=== PATIENT | male | born 1960 | race Caucasian/White ===

== ENCOUNTER 2017-04-10 09:36 | Emergency (ER) | payer OTHER ==
[~2017-04-10] VITALS: Ht 172.7 cm; Wt 80.0 kg
[2017-04-10 09:38] VITALS: BP 158/97; PULSE 89; RESP 15; TEMP 98.2; O2SAT 98
[2017-04-10] MEDS ORDERED: SODIUM CHLOR 0.9% 1000 ML INJ 1,000 ML IV ONE (10:12)
[2017-04-10] MEDS ORDERED: SODIUM CHLORIDE 0.9% FLUSH 10 ML FLUSH IVF PRN (10:15)
--- NOTE | 2017-04-10 10:18 | PD ---
HPI Chief Complaint: Medical Clearance Time Seen by Provider: 09:54 Travel History International Travel<30 days: No Contact w/Intl Traveler<30days: No Traveled to known affect area: No History of Present Illness HPI The patient is a 56-year-old male who presents to the emergency department for the "shakes ", and "[place] ". 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 The patient denied any chest pain, shortness of breath, nausea, vomiting, abdominal pain, or diaphoresis. The patient states he had a similar episode approximately 3 years ago where he had a [address] [facility] and was diagnosed with possibly a "mini stroke "and was placed on aspirin. The patient states he wore a Holter monitor at that time which was unremarkable. He denies any palpitations, lightheadedness, or dizziness. The patient symptoms have currently resolved, however, he now feels "weak". He denies any other physical complaints. 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 The patient denies any fever, chills, or sweats. Symptoms are mild, self resolving, and there are no known exacerbating factors. The patient's blood glucose upon arrival in triage was 109. PFSH Past Medical History Narrative Medical Diverticulitis, TIA Past Surgical History Narrative Surgical Partial splenectomy Social History Alcohol Use: Yes Tobacco Use: Yes (smokless) Substance Use: No Allergies-Medications (Allergen,Severity, Reaction): Coded Allergies: No Known Allergies (Unverified , 04/10/17) Review of Systems Except as stated in HPI: all other systems reviewed are Neg General / Constitutional: Positive: Other (shakes), No: Fever, Chills HENT: Positive: Other ([place]), No: Lightheadedness Cardiovascular: No: Chest Pain or Discomfort, Palpitations, Tachycardia, Diaphoresis Respiratory: No: Shortness of Breath Gastrointestinal: No: Nausea, Vomiting, Abdominal Pain Musculoskeletal: Positive: Weakness Neurologic: No: Dizziness, Focal Abnormalities, Headache, Change in Mentation, Slurred Speech, Paresthesia, Sensory Disturbance Physical Exam Narrative GENERAL: Awake, alert, pleasant 56-year-old male who appears his stated age and is in no acute respiratory distress. SKIN: Focused skin assessment warm/dry. HEAD: Atraumatic. Normocephalic. EYES: Pupils equal and round. Pupils are 2 mm bilateral. Bilateral pterygiums. ENT: No nasal bleeding or discharge. Mucous membranes pink and moist. NECK: Trachea midline. No JVD. CARDIOVASCULAR: Regular rate and rhythm. No murmur appreciated. RESPIRATORY: No accessory muscle use. Clear to auscultation. Breath sounds equal bilaterally. GASTROINTESTINAL: Abdomen soft, well-healed midline scar. No rebound tenderness. MUSCULOSKELETAL: No obvious deformities. No clubbing. No cyanosis. No edema. NEUROLOGICAL: Awake and alert. No obvious cranial nerve deficits. Motor grossly within normal limits. Normal speech. Nonfocal. Oriented 4. Follows commands without difficulty. PSYCHIATRIC: Appropriate mood and affect; insight and judgment normal. Data Data Last Documented VS Vital Signs Date Time Temp Pulse Resp B/P Pulse Ox O2 Delivery O2 Flow Rate FiO2 04/10/17 10:20 71 16 135/82 97 Room Air 04/10/17 09:38 98.2 Orders Electrocardiogram (04/10/17 10:12) Complete Blood Count With Diff (04/10/17 10:12) Comprehensive Metabolic Panel (04/10/17 10:12) Magnesium (Mg) (04/10/17 10:12) Ckmb (Isoenzyme) Profile (04/10/17 10:12) Troponin I (04/10/17 10:12) Ecg Monitoring (04/10/17 10:12) Iv Access Insert/Monitor (04/10/17 10:12) Oximetry (04/10/17 10:12) Sodium Chloride 0.9% Flush (Ns Flush) (04/10/17 10:15) Sodium Chlor 0.9% 1000 Ml Inj (Ns 1000 M (04/10/17 10:12) Labs Laboratory Tests Test 04/10/17 10:15 White Blood Count 8.6 TH/MM3 Red Blood Count 5.14 MIL/MM3 Hemoglobin 14.4 GM/DL Hematocrit 42.3 % Mean Corpuscular Volume 82.4 FL Mean Corpuscular Hemoglobin 28.0 PG Mean Corpuscular Hemoglobin 34.0 % Concent Red Cell Distribution Width 13.6 % Platelet Count 208 TH/MM3 Mean Platelet Volume 8.7 FL Neutrophils (%) (Auto) 81.3 % Lymphocytes (%) (Auto) 8.7 % Monocytes (%) (Auto) 6.8 % Eosinophils (%) (Auto) 2.7 % Basophils (%) (Auto) 0.5 % Neutrophils # (Auto) 7.0 TH/MM3 Lymphocytes # (Auto) 0.8 TH/MM3 Monocytes # (Auto) 0.6 TH/MM3 Eosinophils # (Auto) 0.2 TH/MM3 Basophils # (Auto) 0.0 TH/MM3 CBC Comment DIFF FINAL Differential Comment Sodium Level 141 MEQ/L Potassium Level 4.2 MEQ/L Chloride Level 105 MEQ/L Carbon Dioxide Level 26.6 MEQ/L Anion Gap 9 MEQ/L Blood Urea Nitrogen 16 MG/DL Creatinine 0.95 MG/DL Estimat Glomerular Filtration 82 ML/MIN Rate Random Glucose 91 MG/DL Calcium Level 8.8 MG/DL Magnesium Level 2.1 MG/DL Total Bilirubin 1.0 MG/DL Aspartate Amino Transf 11 U/L (AST/SGOT) Alanine Aminotransferase 14 U/L (ALT/SGPT) Alkaline Phosphatase 65 U/L Total Creatine Kinase 51 U/L Troponin I LESS THAN 0.02 NG/ML Total Protein 7.4 GM/DL Albumin 3.7 GM/DL MDM Medical Decision Making Medical Screen Exam Complete: Yes Emergency Medical Condition: Yes Medical Record Reviewed: Yes Interpretation(s) EKG reveals normal sinus rhythm with a rate of 69. No ischemic changes or ectopy noted. Laboratory Tests Test 04/10/17 10:15 White Blood Count 8.6 TH/MM3 Red Blood Count 5.14 MIL/MM3 Hemoglobin 14.4 GM/DL Hematocrit 42.3 % Mean Corpuscular Volume 82.4 FL Mean Corpuscular Hemoglobin 28.0 PG Mean Corpuscular Hemoglobin 34.0 % Concent Red Cell Distribution Width 13.6 % Platelet Count 208 TH/MM3 Mean Platelet Volume 8.7 FL Neutrophils (%) (Auto) 81.3 % Lymphocytes (%) (Auto) 8.7 % Monocytes (%) (Auto) 6.8 % Eosinophils (%) (Auto) 2.7 % Basophils (%) (Auto) 0.5 % Neutrophils # (Auto) 7.0 TH/MM3 Lymphocytes # (Auto) 0.8 TH/MM3 Monocytes # (Auto) 0.6 TH/MM3 Eosinophils # (Auto) 0.2 TH/MM3 Basophils # (Auto) 0.0 TH/MM3 CBC Comment DIFF FINAL Differential Comment Sodium Level 141 MEQ/L Potassium Level 4.2 MEQ/L Chloride Level 105 MEQ/L Carbon Dioxide Level 26.6 MEQ/L Anion Gap 9 MEQ/L Blood Urea Nitrogen 16 MG/DL Creatinine 0.95 MG/DL Estimat Glomerular Filtration 82 ML/MIN Rate Random Glucose 91 MG/DL Calcium Level 8.8 MG/DL Magnesium Level 2.1 MG/DL Total Bilirubin 1.0 MG/DL Aspartate Amino Transf 11 U/L (AST/SGOT) Alanine Aminotransferase 14 U/L (ALT/SGPT) Alkaline Phosphatase 65 U/L Total Creatine Kinase 51 U/L Troponin I LESS THAN 0.02 NG/ML Total Protein 7.4 GM/DL Albumin 3.7 GM/DL Differential Diagnosis Differential diagnosis includes hypoglycemia, hypokalemia, hyperkalemia, vasovagal episode, hypertension, arrhythmia, ACS. Narrative Course IV was established, labs are drawn and sent, and the patient was placed on cardiac telemetry monitoring and continuous pulse oximetry monitoring. EKG was ordered and interpreted. The patient was administered 1 L of IV fluids. The patient's hemoglobin is unremarkable. White count is within normal limits. Electrolytes are unremarkable. Troponin is less than 0.02. The patient had no evidence of ectopy or arrhythmia on cardiac monitoring. The patient's blood pressure improved to 130s/80s with no medications administered. I had a discussion with the patient regarding his alcohol consumption, he drinks 6-8 beers after 5 PM and drinks sweet tea throughout the day. The patient appears to have some dehydration, he significantly improved with 1 L of fluids. The patient is advised to decrease his alcohol intake, decrease his sweet tea intake , to drink more fluids. He will be provided a copy of his labs and EKG at discharge. Diagnosis Primary Impression: Dehydration Additional Impression: Generalized weakness Patient Instructions: General Instructions Additional Instructions: Decreased beer intake. Increase water intake. Please provide the patient a copy of his EKG and labs at discharge. Follow-up with your primary physician. Return if symptoms worsen or progress. Med/Other Pt SpecificInfo: No Change to Meds Disposition: 01 DISCHARGE HOME Condition: Stable Jose Luis Esparza MD Apr 10, 2017 10:18
[2017-04-10 10:20] VITALS: BP 135/82; PULSE 71; RESP 16; O2SAT 97
[2017-04-10 10:41] LABS: BASOPHIL % 0.5 % (0.0-2.0); EOSINOPHIL # 0.2 TH/MM3 (0-0.4); EOSINOPHIL % 2.7 % (0.0-4.0); HEMATOCRIT 42.3 % (39.0-51.0); HEMO FLAGS DIFF FINAL; LYMPH % 8.7 % (9.0-44.0); LYMPHOCYTE # 0.8 TH/MM3 (1.0-4.8); MEAN CELL VOLUME 82.4 FL (80.0-100.0); MONO % 6.8 % (0.0-8.0); NEUT % 81.3 % (16.0-70.0); PLATELET COUNT 208 TH/MM3 (150-450); RED BLOOD COUNT 5.14 MIL/MM3 (4.50-5.90); RED CELL DISTRIBUTION WIDTH 13.6 % (11.6-17.2); WHITE BLOOD COUNT 8.6 TH/MM3 (4.0-11.0)
[2017-04-10 11:15] LABS: ALT (GPT) 14 U/L (12-78); ANION GAP 9 MEQ/L (5-15); AST (GOT) 11 U/L (15-37); BICARBONATE 26.6 MEQ/L (21.0-32.0); BLOOD UREA NITROGEN 16 MG/DL (7-18); CHLORIDE 105 MEQ/L (98-107); GLOMERULAR FILTRATION RATE 82 ML/MIN (>89); MAGNESIUM 2.1 MG/DL (1.5-2.5); POTASSIUM 4.2 MEQ/L (3.5-5.1); SODIUM (NA) 141 MEQ/L (136-145)
[2017-04-10 11:18] LABS: ALKALINE PHOSPHATASE 65 U/L (45-117)
[2017-04-10 11:25] LABS: CREATINE KINASE 51 U/L (39-308)
[2017-04-10 12:31] VITALS: BP 139/81; PULSE 59; RESP 16; O2SAT 100
--- NOTE | 2017-04-10 14:28 | EKG ---
Date Performed: 04/10/2017 Time Performed: 10:22:02 PTAGE: 56 years EKG: Sinus rhythm NORMAL ECG NO PREVIOUS TRACING DOCTOR: Yoav Martins Interpretating Date/Time 04/10/2017 14:26:01
== END 2017-04-10 12:34 | disposition home or self-care (01) ==
LOC: NEPD 09:36
DX: E86.0 Dehydration (principal); E53.1 Pyridoxine deficiency; Z86.73 Personal history of transient ischemic attack (TIA), and cerebral infarction without residual deficits
CPT/HCPCS: 80053; 82550; 83735; 84484; 85025; 93005; 99284; J7030